=== PATIENT | female | born 1960 | race Caucasian/White ===

== ENCOUNTER 2018-04-08 20:09 | Emergency (ER) | payer OTHER ==
[2018-04-08 21:19] LABS: BARBITURATES NEG (NEG); BENZODIAZEPINES NEG (NEG); CANNABINOIDS NEG (NEG); COCAINE NEG (NEG); METHADONE NEG (NEG); OPIATES NEG (NEG); PHENCYCLIDINE NEG (NEG)
[2018-04-08 21:20] LABS: AMPHETAMINE/METHAMPHETAMINE NEG (NEG); ETHANOL, URINE NEG (NEG)
[2018-04-08] MEDS: DIPHTH,PERTUSS(ACELL),TET TOX 0.5 ML DISP.SYRIN. VAX IM (21:46)
[2018-04-08] MEDS: LIDOCAINE 2% 20 ML VIAL. IJ (21:46)
[2018-04-08 21:50] LABS: ADD MAN DIFF? NO
[2018-04-08 21:54] LABS: BASO % 1 % (0-3); EOS # 0.1 x10^3/uL (0.0-0.7); EOS % 2 % (0-3); HEMATOCRIT 35.2 % (36.0-47.0); HEMOGLOBIN 12.3 g/dL (12.0-15.5); LYMPH # 1.7 x10^3/uL (1.0-4.8); LYMPH % 25 % (24-48); MEAN CORPUSCULAR HEMOGLOBIN 32 pg (25-35); MEAN CORPUSCULAR HGB CONC 35 g/dL (31-37); MEAN CORPUSCULAR VOLUME 91 fL (79-100); MONO # 0.7 x10^3/uL (0.0-1.1); MONO % 10 % (0-9); NEUT # 4.3 x10^3uL (1.8-7.7); NEUT % 63 % (31-73); PLATELET COUNT 176 x10^3/uL (140-400); RED BLOOD COUNT 3.89 x10^6/uL (3.50-5.40); RED CELL DISTRIBUTION WIDTH 12.6 % (11.5-14.5); WHITE BLOOD COUNT 6.8 x10^3/uL (4.0-11.0)
[2018-04-08 22:06] LABS: ANION GAP 4 (6-14); BLOOD UREA NITROGEN 23 mg/dL (7-20); BUN/CREATININE RATIO 23 (6-20); CALCIUM 9.1 mg/dL (8.5-10.1); CARBON DIOXIDE 28 mmol/L (21-32); CHLORIDE 109 mmol/L (98-107); GFR 56.6; GLUCOSE 168 mg/dL (70-99); POTASSIUM 4.2 mmol/L (3.5-5.1); SODIUM 141 mmol/L (136-145)
[2018-04-08 22:09] LABS: ACETAMIN < 2 mcg/ml (10-30); ETHANOL < 10 mg/dL (0-10); SALIC < 2.8 mg/dL (2.8-20.0)
[2018-04-08 22:10] LABS: ALBUMIN 3.4 g/dL (3.4-5.0); ALBUMIN/GLOBULIN RATIO 1.3 (1.0-1.7); ALK PHOS 66 U/L (46-116); ALT (SGPT) 21 U/L (14-59); AST (SGOT) 9 U/L (15-37); TOTAL BILIRUBIN 0.1 mg/dL (0.2-1.0); TOTAL PROTEIN 6.1 g/dL (6.4-8.2)
[2018-04-08] MEDS: CHLORHEXIDINE 0.12% 15 ML MOUTHWASH. SWSP (22:19)
[2018-04-08] MEDS: SIMVASTATIN 20 MG TABLET PO (23:23)
[2018-04-08] MEDS: GABAPENTIN 400 MG CAPSULE. PO (23:23)
[2018-04-08] MEDS: QUEtiapine 100 MG TABLET. PO (23:23)
[2018-04-08] MEDS: OXYBUTYNIN CHLORIDE 5 MG TABLET PO (23:23)
[2018-04-08] MEDS: LATANOPROST 0.005% OPHTH SOLUTION 2.5ML BOTTLE. OU (23:23)
[2018-04-08] MEDS: CYCLOBENZAPRINE 10 MG TABLET. PO (23:25)
[2018-04-08] MEDS: PSYLLIUM HUSK (SUGAR FREE) 1 PKT PACKET PO (23:58)
[2018-04-08] MEDS: DIVALPROEX DELAYED RELEASE 500 MG TABLET.DR. PO (23:58)
[2018-04-08] MEDS: POLYETHYLENE GLYCOL 3350 17 GM PACKET. PO (23:58)
== END 2018-04-09 01:15 ==
LOC: ER 04-09 01:15
DX: S51.812A Laceration without foreign body of left forearm, initial encounter (principal); R45.851 Suicidal ideations; Z88.7 Allergy status to serum and vaccine; Z88.8 Allergy status to other drugs, medicaments and biological substances; Z91.030 Bee allergy status; Z88.1 Allergy status to other antibiotic agents; X78.1XXA Intentional self-harm by knife, initial encounter; Y93.89 Activity, other specified; Y99.8 Other external cause status; Y92.89 Other specified places as the place of occurrence of the external cause
CPT/HCPCS: 12004; 36415; 80053; 80307; 80329; 85025; 90471; 90715; 99285-25; G0480; G6039; J2001